=== PATIENT | male | born 1965 | race Caucasian/White ===

== ENCOUNTER 2017-05-22 13:04 | Emergency (ER) | payer OTHER | END 2017-05-22 16:37 | disposition home or self-care (01) | LOC: E/R 13:04 | DX: R21 Rash and other nonspecific skin eruption (principal) | CPT/HCPCS: 99284; Z7502 ==

== ENCOUNTER → 2017-07-28 | Outpatient (CLI) | payer OTHER | END | disposition home or self-care (01) | LOC: HKI 13:30 | DX: M25.561 Pain in right knee (principal) | CPT/HCPCS: 20610 ==

== ENCOUNTER → 2018-03-15 | Outpatient (CLI) | payer OTHER | END | disposition home or self-care (01) | LOC: HKI 09:14 | DX: M17.11 Unilateral primary osteoarthritis, right knee (principal) | CPT/HCPCS: 20610 ==